=== PATIENT | female | born 1995 | race Caucasian/White ===

== ENCOUNTER 2019-05-22 20:17 | Emergency (ER) | payer MEDICAID ==
[~2019-05-22] VITALS: Ht 157.5 cm; Wt 58.2 kg
[2019-05-22 20:34] VITALS: BP 139/75
--- NOTE | 2019-05-22 20:45 | NUR ---
PT AMBULATED TO BED 6 WITH STEADY GAIT.
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
--- NOTE | 2019-05-22 22:08 | NUR ---
PT C/O INCREASED NAUSEA. VOMITTED X1. DR. RESENDIZ MADE AWARE AND GIVEN VERBAL ORDER FOR ZOFRAN 4MG ODT. ORDER CARRIED OUT.
[2019-05-22] MEDS ORDERED: ONDANSETRON 4 MG ODT PO ONE (22:10)
[2019-05-22 22:30] VITALS: BP 132/71
--- NOTE | 2019-05-22 22:42 | NUR ---
DR. RESENDIZ AT BEDSIDE EVALUATING PT.
[2019-05-22] MEDS ORDERED: KETOROLAC 60 MG/2 ML VIAL IM ONE (22:50)
--- NOTE | 2019-05-22 22:52 | NUR ---
PT TAKEN TO RAD VIA W/C
--- NOTE | 2019-05-22 23:20 | NUR ---
PT SISTER CALLED AND WAS VERBALLY AGGRESSIVE AND DEMANDING INFORMATION REGARDING HER SISTER'S TREATMENT. PT SISTER STATED "I JUST WANT YOU GUYS TO KNOW THAT IF SOMETHING HAPPENS TO MY SISTER IM GOING TO [facility]." PT SISTER WAS INFORMED THAT INFORMATION REGARDING HER SISTER'S CARE COULD NOT BE DISCUSSED WITH HER.
--- NOTE | 2019-05-22 23:21 | NUR ---
Patient discharged with v/s stable. Written and verbal after care instructions given and explained by Dr. Williamson. Ambulatory with steady gait. All questions addressed prior to discharge. ID band removed. Patient advised to follow up with PMD. Rx of Naprosyn given. Patient educated on indication of medication including possible reaction and side effects. Opportunity to ask questions provided and answered.
== END 2019-05-22 23:21 | disposition home or self-care (01) ==
LOC: MED 20:17
DX: S13.4XXA Sprain of ligaments of cervical spine, initial encounter (principal); R11.0 Nausea; R42 Dizziness and giddiness; Z88.8 Allergy status to other drugs, medicaments and biological substances; V89.2XXA Person injured in unspecified motor-vehicle accident, traffic, initial encounter; Y93.89 Activity, other specified; Y92.89 Other specified places as the place of occurrence of the external cause; Y99.8 Other external cause status
CPT/HCPCS: 72050; 96372; 99283; J1885; Q0162